=== PATIENT | female | born 1965 | race Caucasian/White ===

== ENCOUNTER 2016-08-01 08:33 | Day surgery (SDC) | payer BC ==
[2016-07-30 14:19] LABS: HEMATOCRIT 39.6 % (36.0-48.0); HEMOGLOBIN 13.1 g/dL (12.0-16.0)
[2016-07-30 14:35] LABS: ALBUMIN 3.8 G/DL (3.5-5.0); ALKALINE PHOSPHATASE 125 U/L (45-117); BUN (BLOOD UREA NITROGEN) 13 MG/DL (6-23); CALCIUM, SERUM 9.2 MG/DL (8.5-10.4); CHLORIDE, SERUM 106 MMOL/L (96-112); CO2 (CARBON DIOXIDE) 31 MMOL/L (24-34); CREATININE 0.76 MG/DL (0.55-1.02); GFR AFRICAN AMERICAN 105 ML/MIN (>=60); GFR NON AFRICAN AMERICAN 90 ML/MIN (>=60); GLOBULIN 3.8 G/DL (2.5-4.1); GLUCOSE, SERUM 169 MG/DL (60-99); POTASSIUM, SERUM 3.6 MMOL/L (3.5-5.3); SGOT(AST) 20 U/L (5-40); SGPT(ALT) 36 U/L (5-65); SODIUM, SERUM 142 MMOL/L (135-148); TOTAL BILIRUBIN 0.4 MG/DL (0-1.2); TOTAL PROTEIN 7.6 G/DL (6.0-8.5)
--- NOTE | ~2016-08-01 | OP ---
Record Of [address] [place]. [address] NAME: BRITNI SERNA SHA : 63 STATUS : [facility]#: [id number] AGE: 51 ADM/REG DATE : 08/01/16 MR#: [id number] REPORT SERV DATE: 08/02/16 DICTATED BY: INDERJIT HERNANDEZ JR. DATE: 08/01/16 REPORT STATUS : Draft TRANSCRIBED BY: MODL DATE: 08/01/16 DATE OF PROCEDURE: REASON FOR SURGERY: This 51-year-old patient, presents with a large multifocal triple negative breast cancer of the right breast. She is in need of venous access for chemotherapy. PREOPERATIVE DIAGNOSIS: Carcinoma, right breast, with need of venous access for chemotherapy. POSTOPERATIVE DIAGNOSIS: Carcinoma, right breast, with need of venous access for chemotherapy. SURGEON: Inderjit Hernandez M.D. SURGERY PERFORMED: Insertion of PowerPort venous port. DESCRIPTION OF PROCEDURE: With anesthesia support, the patient was prepped and draped in supine position in usual sterile fashion. 1% Xylocaine was used to anesthetize the infraclavicular region. The needle and wire were inserted into the vein on first passage and documented to be in correct position with fluoroscopy. The area was anesthetized, and incision was made. The catheter was inserted through a Tear-Away introducer. The system was assembled, aspirated, flushed, and secured to the chest wall with Prolene. The wound was irrigated and hemostasis was obtained. The wound was closed with three layers of Monocryl. Final fluoroscopy revealed correct positioning of the catheter tip without kinking or notching. External access needle was applied and aspirated, flushed, and sterile dressing applied. The patient tolerated the procedure well without complications. ESTIMATED BLOOD LOSS: Negligible. SPONGE COUNT: Correct. /YUE Inderjit Hernandez Jr., M.D. / [id number] CC: Inderjit Hernandez Jr., M.D. Record Of [address] [place]. [address] NAME: BRITNI SERNA : 63 STATUS : [facility]#: [id number] AGE: 51 ADM/REG DATE : 08/01/16 MR#: [id number] REPORT SERV DATE: 08/02/16 DICTATED BY: INDERJIT HERNANDEZ JR. DATE: 08/01/16 REPORT STATUS : Draft TRANSCRIBED BY: MODL DATE: 08/01/16 Abimael Rollins MD [facility] WALDO RIVERA MD
[~2016-08-01 08:33] MED LIST: T PO
== END 2016-08-01 12:30 | disposition home or self-care (01) ==
LOC: SDC 08:33
PROVIDERS: Surgery Surgical Oncology
PROC: 0JH63XZ Insertion of Tunneled Vascular Access Device into Chest Subcutaneous Tissue and Fascia, Percutaneous Approach (ICD-10-PCS; principal; 2016-08-01 09:15)
DX: C50.911 Malignant neoplasm of unspecified site of right female breast (principal); E66.01 Morbid (severe) obesity due to excess calories; Z68.31 Body mass index [BMI] 31.0-31.9, adult; Z98.890 Other specified postprocedural states; Z90.710 Acquired absence of both cervix and uterus
CPT/HCPCS: 71010; 71020; 77001; 80053; 85014; 85018; 93005; C1751; J0690; J2250; J3010